=== PATIENT | female | born 1990 ===

== ENCOUNTER 2021-06-19 18:32 | Emergency (ER) | payer OTHER ==
[~2021-06-19] VITALS: Ht 157.5 cm; Wt 62.6 kg
[2021-06-19] MEDS ORDERED: ONDA4ODT MM (19:28)
[2021-06-19] MEDS ORDERED: BENZ100A PO (19:28)
== END 2021-06-19 19:37 | disposition home or self-care (01) ==
LOC: ER 18:32
DX: U07.1 COVID-19 (principal)
CPT/HCPCS: A9270